=== PATIENT | male | born 1950 | race Caucasian/White ===

== ENCOUNTER 2017-03-11 21:44 | Inpatient (IN) | payer OTHER ==
[~2017-03-11] VITALS: Ht 170.2 cm; Wt 63.7 kg
[2017-03-11 23:36] LABS: BASOPHIL % 0.6 % (0-2); RED CELL DISTRIBUTION WIDTH 13.7 % (11.5-14.5)
[2017-03-11 23:37] LABS: PLATELET COUNT 84 x10^3mcL (130-400)
[2017-03-11 23:50] LABS: CALCIUM 8.7 mg/dL (8.5-10.1); CHLORIDE SERUM 104 mmol/L (98-107); CREATININE SERUM 0.8 mg/dL (0.7-1.3); GFR1 > 60 mL/min; GLUCOSE SERUM 138 mg/dL (74-106); POTASSIUM SERUM 4.9 mmol/L (3.5-5.1); SODIUM SERUM 142 mmol/L (136-145)
[2017-03-11 23:54] LABS: ALKALINE PHOSPHATASE 68 U/L (46-116); ALT/SGPT 18 U/L (16-63); AST/SGOT 21 U/L (15-37); CHOLESTEROL 183 mg/dL (<200); HDL CHOLESTEROL 54 mg/dL (40-60); PHOSPHOROUS 4.3 mg/dL (2.5-4.9); TOTAL PROTEIN, SERUM 6.5 g/dL (6.4-8.2); URIC ACID 4.9 mg/dL (3.5-7.2)
[2017-03-11 23:57] LABS: ALBUMIN 3.1 g/dL (3.4-5.0)
[2017-03-12] VITALS (7 sets, daily range): BP systolic 89–109; BP diastolic 51–68
[2017-03-12] MEDS ORDERED: SINGULAIR4 MG/Packe (00:40)
[2017-03-12] MEDS ORDERED: PREDNISONE1 MG PO (00:40)
[2017-03-12] MEDS ORDERED: THE MEDICINE S300 MG PO (00:40)
[2017-03-12] MEDS ORDERED: FLO4 PO (00:40)
[2017-03-12] MEDS ORDERED: RESTORIL15 MG PO (00:40)
[2017-03-12 01:57] LABS: CHOLESTEROL/HDL RATIO 3.3
[2017-03-12 02:06] LABS: T3 TOTAL 1.02 ng/mL
[2017-03-12 02:41] LABS: FREE T4 1.2 ng/dL (0.76-1.46); FREE THYROXINE INDEX 2.8 ug/dL (1.4-4.5); T4(THYROXINE) 7.6 ug/dL (4.7-13.3)
[2017-03-12 05:54] LABS: PLATELET COUNT 144 x10^3mcL (130-400)
[2017-03-12 06:04] LABS: CALCIUM 7.7 mg/dL (8.5-10.1); CARBON DIOXIDE 29.6 mmol/L (21-32); CHLORIDE SERUM 108 mmol/L (98-107); CREATININE SERUM 0.7 mg/dL (0.7-1.3); GFR1 > 60 mL/min; GLUCOSE SERUM 148 mg/dL (74-106); MAGNESIUM 1.8 mg/dL (1.8-2.4); PHOSPHOROUS 3.8 mg/dL (2.5-4.9); POTASSIUM SERUM 4.5 mmol/L (3.5-5.1); SODIUM SERUM 144 mmol/L (136-145)
[2017-03-12 08:33] LABS: UA SPECIFIC GRAVITY 1.025 (1.005-1.035); microscopic required? YES; urine erythrocyte 1+ (NEGATIVE)
[2017-03-12 08:45] LABS: BAND NEUTROPHIL 3 % (0-10); BASOPHIL 0 % (0-2); MONOCYTE 6 % (0-7); MYELOCYTE 1 % (0-2); SEGMENTED NEUTROPHILS 75 % (37-75)
[2017-03-12 08:59] LABS: AMPHETAMINE QUAL UR NONE DETECTED (NEG <=1000)
[2017-03-12 17:21] LABS: UA SPECIFIC GRAVITY 1.025 (1.005-1.035); microscopic required? YES; urine erythrocyte 1+ (NEGATIVE)
[2017-03-13 05:23] VITALS: BP 105/60
[2017-03-13 06:40] LABS: BASOPHIL % 0.3 % (0-2)
[2017-03-13 06:45] LABS: PLATELET COUNT 101 x10^3mcL (130-400)
[2017-03-13 06:57] LABS: CARBON DIOXIDE 31.1 mmol/L (21-32); CHLORIDE SERUM 106 mmol/L (98-107); CREATININE SERUM 0.7 mg/dL (0.7-1.3); GFR1 > 60 mL/min; GLUCOSE SERUM 104 mg/dL (74-106); SODIUM SERUM 143 mmol/L (136-145)
[2017-03-13 10:15] VITALS: BP 109/75
[2017-03-13 14:17] LABS: RED BLOOD CELLS 2.68 M/mm3 (4.52-5.90)
[2017-03-13 14:23] LABS: IRON 30 ug/dL (65-170); TOTAL IRON BINDING CAPACITY 182 ug/dL (250-450)
[2017-03-13 14:50] VITALS: BP 101/59
[2017-03-13 15:52] LABS: RED CELL DISTRIBUTION WIDTH 13.7 % (11.5-14.5)
[2017-03-13 16:01] LABS: PLATELET COUNT 115 x10^3mcL (130-400)
[2017-03-13 16:35] LABS: BAND NEUTROPHIL 5 % (0-10); BASOPHIL 0 % (0-2); METAMYELOCTE 1 % (0-2); MONOCYTE 8 % (0-7); SEGMENTED NEUTROPHILS 78 % (37-75)
[2017-03-13 17:20] VITALS: BP 87/54
[2017-03-13 20:59] VITALS: BP 98/62
[2017-03-14 06:02] VITALS: BP 104/63
[2017-03-14 06:35] LABS: RED CELL DISTRIBUTION WIDTH 14.5 % (11.5-14.5)
[2017-03-14 06:53] LABS: CALCIUM 7.9 mg/dL (8.5-10.1); CARBON DIOXIDE 33.9 mmol/L (21-32); CHLORIDE SERUM 106 mmol/L (98-107); CREATININE SERUM 0.6 mg/dL (0.7-1.3); GFR1 > 60 mL/min; GLUCOSE SERUM 82 mg/dL (74-106); POTASSIUM SERUM 3.8 mmol/L (3.5-5.1); SODIUM SERUM 144 mmol/L (136-145)
[2017-03-14 07:00] LABS: PLATELET COUNT 96 x10^3mcL (130-400)
[2017-03-14 09:52] VITALS: BP 106/55
[2017-03-14 10:44] LABS: BAND NEUTROPHIL 2 % (0-10); BASOPHIL 0 % (0-2); MONOCYTE 4 % (0-7); MYELOCYTE 1 % (0-2); SEGMENTED NEUTROPHILS 79 % (37-75)
[2017-03-14 10:45] LABS: PLATELET MORPHOLOGY PLATELETS NORMAL; rbc morphology (normal/abnorm) ABNORMAL (NORMAL)
[2017-03-14 12:40] VITALS: BP 100/51
[2017-03-14 19:30] VITALS: BP 122/77
[2017-03-15 05:41] VITALS: BP 96/57
[2017-03-15 06:29] LABS: CALCIUM 7.9 mg/dL (8.5-10.1); CARBON DIOXIDE 27.9 mmol/L (21-32); CHLORIDE SERUM 107 mmol/L (98-107); CREATININE SERUM 0.9 mg/dL (0.7-1.3); GFR1 > 60 mL/min; GLUCOSE SERUM 179 mg/dL (74-106); MAGNESIUM 1.9 mg/dL (1.8-2.4); PHOSPHOROUS 4.2 mg/dL (2.5-4.9); POTASSIUM SERUM 4.7 mmol/L (3.5-5.1); SODIUM SERUM 142 mmol/L (136-145)
[2017-03-15 07:13] LABS: PLATELET COUNT 127 x10^3mcL (130-400); RED CELL DISTRIBUTION WIDTH 14.8 % (11.5-14.5)
[2017-03-15 08:55] VITALS: Ht 170.2 cm; Wt 63.7 kg
[2017-03-15 11:51] LABS: ATYPICAL LYMPH 3 %; BAND NEUTROPHIL 5 % (0-10); BASOPHIL 1 % (0-2); MONOCYTE 7 % (0-7); SEGMENTED NEUTROPHILS 81 % (37-75)
[2017-03-15 11:52] LABS: PLATELET MORPHOLOGY PLATELETS NORMAL; rbc morphology (normal/abnorm) ABNORMAL (NORMAL)
[2017-03-15 13:18] VITALS: BP 95/64
[2017-03-15 14:04] VITALS: BP 103/67
[2017-03-15 16:24] LABS: PLATELET COUNT 153 x10^3mcL (130-400)
[2017-03-15 16:47] LABS: RED CELL DISTRIBUTION WIDTH 14.8 % (11.5-14.5)
[2017-03-15 17:02] VITALS: BP 110/65
[2017-03-15 17:48] LABS: BAND NEUTROPHIL 14 % (0-10); BASOPHIL 0 % (0-2); METAMYELOCTE 1 % (0-2); MONOCYTE 4 % (0-7); SEGMENTED NEUTROPHILS 73 % (37-75)
[2017-03-15 17:49] LABS: PLATELET MORPHOLOGY PLATELETS NORMAL
[2017-03-15 18:18] VITALS: BP 110/65
[2017-03-15 21:44] VITALS: BP 105/59
[2017-03-16 05:48] VITALS: BP 94/57
[2017-03-16 06:22] LABS: CALCIUM 7.7 mg/dL (8.5-10.1); CHLORIDE SERUM 104 mmol/L (98-107); CREATININE SERUM 0.8 mg/dL (0.7-1.3); GFR1 > 60 mL/min; GLUCOSE SERUM 120 mg/dL (74-106); MAGNESIUM 2.1 mg/dL (1.8-2.4); POTASSIUM SERUM 4.4 mmol/L (3.5-5.1); SODIUM SERUM 142 mmol/L (136-145)
[2017-03-16 06:56] LABS: PLATELET COUNT 121 x10^3mcL (130-400); RED CELL DISTRIBUTION WIDTH 14.8 % (11.5-14.5)
[2017-03-16 10:17] VITALS: BP 108/58
[2017-03-16 10:56] LABS: BAND NEUTROPHIL 2 % (0-10); BASOPHIL 0 % (0-2); MONOCYTE 3 % (0-7); SEGMENTED NEUTROPHILS 85 % (37-75)
[2017-03-16 10:58] LABS: PLATELET MORPHOLOGY PLATELETS DECREASED; rbc morphology (normal/abnorm) NORMAL (NORMAL)
[2017-03-16 13:40] VITALS: BP 100/49
[2017-03-16 17:00] VITALS: BP 93/53
[2017-03-16 19:20] VITALS: BP 141/94
[2017-03-16 21:20] VITALS: BP 98/54
[2017-03-17] MEDS ORDERED: DEPL PO ×2 (00:40→09:24)
[2017-03-17] MEDS ORDERED: FLONS (00:40)
[2017-03-17 05:36] VITALS: BP 91/41
[2017-03-17 05:40] VITALS: BP 93/60
[2017-03-17 06:40] LABS: CALCIUM 7.6 mg/dL (8.5-10.1); CARBON DIOXIDE 32.3 mmol/L (21-32); CHLORIDE SERUM 104 mmol/L (98-107); CREATININE SERUM 0.6 mg/dL (0.7-1.3); GFR1 > 60 mL/min; GLUCOSE SERUM 115 mg/dL (74-106); MAGNESIUM 2.3 mg/dL (1.8-2.4); POTASSIUM SERUM 4.1 mmol/L (3.5-5.1); SODIUM SERUM 141 mmol/L (136-145)
[2017-03-17 07:24] LABS: BASOPHIL % 0 % (0-2); PLATELET COUNT 113 x10^3mcL (130-400); RED CELL DISTRIBUTION WIDTH 15.1 % (11.5-14.5)
[2017-03-17] MEDS ORDERED: ASPIR 8181 MG PO (09:20)
[2017-03-17] MEDS ORDERED: BISAC-EVAC10 MG RC (09:21)
[2017-03-17] MEDS ORDERED: FERROUS SULFAT325 M2 PO (09:25)
[2017-03-17] MEDS ORDERED: STOOL SOFTENER240 M2 PO (09:25)
[2017-03-17] MEDS ORDERED: IPRATROPIUM BROM3 M2 INH (09:28)
[2017-03-17] MEDS ORDERED: MULTI-VITAMINS1 TAB PO (09:29)
[2017-03-17] MEDS ORDERED: NORCO1 TA2 PO (09:36)
[2017-03-17] MEDS ORDERED: SINGULAIR10 MG PO (09:38)
[2017-03-17] MEDS ORDERED: VITAMIN C500 M5 PO (09:41)
[2017-03-17] MEDS ORDERED: [UNRECOGNIZED DRUG - CODE] PO (09:42)
[2017-03-17] MEDS ORDERED: HEP5I SC (09:43)
[2017-03-17] MEDS ORDERED: CAR60 PO (09:43)
[2017-03-17 09:50] VITALS: BP 100/57
[2017-03-17] MEDS ORDERED: ZOS3PM IV (09:59)
[2017-03-17 13:05] VITALS: BP 100/57
== END 2017-03-17 14:30 | DRG 853 ==
LOC: ED 21:44 → MU 03-12 00:04 → DU 03-12 00:04 → MU 03-16 11:31
PROVIDERS: Emergency Medicine; Family Medicine; Neuromusculoskeletal Medicine, Sports Medicine; ADMIT Family Medicine
PROC: 0QS604Z Reposition Right Upper Femur with Internal Fixation Device, Open Approach (ICD-10-PCS; 2017-03-14)
PROC: 0SRR0J9 Replacement of Right Hip Joint, Femoral Surface with Synthetic Substitute, Cemented, Open Approach (ICD-10-PCS; principal; 2017-03-14 11:30)
DX: A41.9 Sepsis, unspecified organism (principal); S72.011A Unspecified intracapsular fracture of right femur, initial encounter for closed fracture; J69.0 Pneumonitis due to inhalation of food and vomit; N17.0 Acute kidney failure with tubular necrosis; S72.031A Displaced midcervical fracture of right femur, initial encounter for closed fracture; N39.0 Urinary tract infection, site not specified; E44.0 Moderate protein-calorie malnutrition; R65.20 Severe sepsis without septic shock; I10 Essential (primary) hypertension; J44.9 Chronic obstructive pulmonary disease, unspecified; R13.10 Dysphagia, unspecified; N40.0 Benign prostatic hyperplasia without lower urinary tract symptoms; D69.6 Thrombocytopenia, unspecified; D64.9 Anemia, unspecified; M62.50 Muscle wasting and atrophy, not elsewhere classified, unspecified site; F31.9 Bipolar disorder, unspecified; Z99.3 Dependence on wheelchair; Z68.22 Body mass index [BMI] 22.0-22.9, adult; I69.320 Aphasia following cerebral infarction; I69.391 Dysphagia following cerebral infarction; W07.XXXA Fall from chair, initial encounter; Y93.89 Activity, other specified; Y92.89 Other specified places as the place of occurrence of the external cause
CPT/HCPCS: 76770; 83880; 84439; 92610-GN; 92611-GN; 94150; 97110-GP; 97530-GP; C1713; C1776; J0690; J0696; J1170; J1644; J1885; J1940; J2250; J2270; J2543; J2704; J3010; J3490; J7030; J7040; J7120; J7512; J7613; J7620; P9016; Q0092; Q0162; Q0163; Q9967